=== PATIENT | female | born 2000 | race Caucasian/White ===

== ENCOUNTER → 2021-04-10 15:32 | Outpatient (CLI) | payer MEDICAID, SELFPAY ==
[2021-04-10 17:30] LABS: Absolute Lymphocyte Count 2.82 X10^3/uL (0.83-4.51); Absolute Neutrophil Count 7.6 X10^3/uL (2.0-7.7); Basophil# 0.03 X10^3/uL; Basophil% 0.3 % (0-1); Eosinophils% 0.9 % (0-5); Hematocrit 36.1 % (37-47); Hemoglobin 12.2 g/dL (12.0-15.0); Lymphocyte # 2.82 X10^3/ul (0.83-4.51); Lymphocyte % 25.1 % (19-41); Mean Corp Hgb Conc 33.8 g/dL (32-36); Mean Corpuscular Hgb 30.4 pg (27.0-32.0); Mean Platelet Vol. 11.5 fl (6.2-12.0); Monocyte# 0.68 X10^3/uL; NRBC Flagged by Analyzer 0 % (0-5); Neutrophil # 7.59 X10^3/uL (2.7-7.7); Neutrophil % 67.4 % (47-70); Platelet Count 261 K/mm3 (150-450); RBC Distribution Width CV 12.4 % (11.6-14.6); Red Blood Count 4.01 M/mm3 (4.2-5.4); White Blood Count 11.3 K/mm3 (4.4-11.0)
[2021-04-11 09:08] LABS: HIV - WCH Non-Reactive (Nonreactive); Hepatitis B Surface Antigen Non-Reactive (Nonreactive); Hepatitis C Antibody Non-Reactive (Nonreactive); Rubella IgG Reactive (Nonreactive); Syphilis Antibodies Non-reactive
[2021-04-13 06:07] LABS: Chlamydia By Nucleic Acid AMP Negative (Negative)
[2021-04-13 08:44] LABS: Gonococcus By Nucleic Acid AMP Negative (Negative)
[2021-04-13 12:17] LABS: HPV Reflexed? NOT INDICATED
== END ==
PROVIDERS: Visit Provider Obstetrics & Gynecology
DX: Z34.81 Encounter for supervision of other normal pregnancy, first trimester (principal)
CPT/HCPCS: 36415; 85025; 86703; 86762; 86780; 86803; 87077; 87086; 87088; 87340; 87491; 87591; 88175; G0145

== ENCOUNTER → 2021-08-21 16:35 | Outpatient (CLI) | payer MEDICAID, SELFPAY ==
[2021-08-21 17:30] LABS: Hematocrit 35.7 % (37-47); Hemoglobin 11.7 g/dL (12.0-15.0); Mean Corp Hgb Conc 32.8 g/dL (32-36); Mean Corpuscular Hgb 32.1 pg (27.0-32.0); Mean Corpuscular Volume 97.8 fL (81-99); Mean Platelet Vol. 10.4 fl (6.2-12.0); Platelet Count 228 K/mm3 (150-450); RBC Distribution Width SD 46.8 fl (35.1-43.9); Red Blood Count 3.65 M/mm3 (4.2-5.4); White Blood Count 12.1 K/mm3 (4.4-11.0)
[2021-08-21 17:37] LABS: Glucose Challenge Gest 1H 50g 80 mg/dL (70-140)
== END ==
PROVIDERS: Visit Provider Obstetrics & Gynecology
DX: Z34.82 Encounter for supervision of other normal pregnancy, second trimester (principal)
CPT/HCPCS: 36415; 82950; 85027

== ENCOUNTER 2021-11-09 17:20 | Outpatient (CLI) | payer MEDICAID, SELFPAY | END 2021-11-09 23:59 | disposition short-term general hospital (02) | LOC: WOBLAB 17:20 | PROVIDERS: Visit Provider Obstetrics & Gynecology | DX: Z36.85 Encounter for antenatal screening for Streptococcus B (principal) | CPT/HCPCS: 87081 ==

== ENCOUNTER 2021-12-03 11:10 | Outpatient (CLI) | payer MEDICAID, SELFPAY ==
[2021-12-03 11:14] VITALS: BMI 35.0
[2021-12-03 11:15] VITALS: TEMP 36.8; O2SAT 98
[2021-12-03 11:48] LABS: ROM Internal Control Test YES-OK TO RESULT pt. (Internal QC); ROM Patient Test Negative (Negative)
--- NOTE | 2021-12-03 21:37 | PCM.PN.BLA ---
Progress Note G1 at 39/6w presenting with leaking of fluid. ROM negative. CE 4 cm, unchanged after recheck. status reassuring. NST REACTIVE. FHR 145/mod tanya/+accel/no decel, irregular contractions. Discharge home with labor precautions
== END 2021-12-03 23:59 | disposition home or self-care (01) ==
LOC: WPOUT 11:13 → WP 11:14
PROVIDERS: Visit Provider Student in an Organized Health Care Education/Training Program
DX: O47.1 False labor at or after 37 completed weeks of gestation (principal); Z3A.39 39 weeks gestation of pregnancy
CPT/HCPCS: 59050; G0378 ×2; 84112; 59025; 99218

== ENCOUNTER 2021-12-05 12:12 | Inpatient (IN) | payer MEDICAID, SELFPAY ==
[2021-12-05] VITALS (43 sets, daily range): BP systolic 107–134; BP diastolic 55–90; PULSE 71–98; TEMP 36.1–37.1; O2SAT 97–100; BMI 34.0
[2021-12-05] MEDS: Lactated Ringers 1,000 ML 50 ML IV (12:40)
[2021-12-05 12:56] LABS: Absolute Lymphocyte Count 2.04 X10^3/uL (0.83-4.51); Absolute Neutrophil Count 10.5 X10^3/uL (2.0-7.7); Basophil# 0.04 X10^3/uL; Basophil% 0.3 % (0-1); Eosinophil# 0.09 X10^3/uL; Eosinophils% 0.7 % (0-5); Hematocrit 35.2 % (37-47); Lymphocyte # 2.04 X10^3/ul (0.83-4.51); Mean Corp Hgb Conc 34.1 g/dL (32-36); Mean Platelet Vol. 11.1 fl (6.2-12.0); Monocyte# 0.86 X10^3/uL; Monocyte% 6.3 % (0-10); NRBC Flagged by Analyzer 0 % (0-5); Neutrophil # 10.46 X10^3/uL (2.7-7.7); Neutrophil % 76.9 % (47-70); Platelet Count 211 K/mm3 (150-450); RBC Distribution Width CV 14.1 % (11.6-14.6); Red Blood Count 3.87 M/mm3 (4.2-5.4); White Blood Count 13.6 K/mm3 (4.4-11.0)
[2021-12-05] MEDS: Lactated Ringers 500 ML 999 ML IV (15:21)
[2021-12-05] MEDS: fentaNYL-bupivacaine (epidural) 100 ML BAG EPIDURAL ×2 (16:17→21:00)
--- NOTE | 2021-12-05 18:31 | PCM.HP.OB ---
HPI - General General Date of Admission: 12/05/21 HPI Narrative HELIO MONROE, is a 21 F who presents with c/o painful contractions. Maternal Data Information SEAN Calculator Estimated Delivery Date Method Current WG Current Estimate 12/04/21 LMP (Certain) 40w 1d PFSH PFSH Medical History (Updated 12/05/21 @ 18:[address] Paola Field MD) Patient denies medical problems Home Medications Vitamin D (with calcium) 1 tab PO/SL DAILY 12/03/21 [History Last Taken 11/19/21 08:00] Allergy/AdvReac Type Severity Reaction Status Date / Time No Known Allergies Allergy Verified 12/05/21 12:30 Surgical History History of surgery Social History Smoking Status: Former smoker History 1 Elective abortions Hx Para 0 Spontaneous abortions Hx # Term Pregnancies Ectopic pregnancies Hx # Pregnancies Multiple births # of living children NST FHR Rate Baby A Baseline: 120 Variability:: Moderate Accelerations:: 15 x 15 Decelerations:: None NST Reactive:: Yes FHR Category:: Category I Uterine Activity:: 2-3/10 Vital Signs Vital Signs Vital Signs: 12/05/21 12:02 12/05/21 12:03 12/05/21 14:00 Temperature 98.1 F 98.4 F Temperature Source Tympanic Temporal Pulse Rate 83 80 81 Blood Pressure 134/88 H 123/71 H BP Systolic 134 123 BP Diastolic 88 71 Pulse Ox 99 100 12/05/21 15:37 12/05/21 15:48 12/05/21 15:49 Temperature 98.7 F Temperature Source Temporal Pulse Rate 82 87 Blood Pressure 124/90 H 124/81 H BP Systolic 124 124 BP Diastolic 90 81 Pulse Ox 99 12/05/21 15:53 12/05/21 15:58 12/05/21 15:59 Temperature Temperature Source Pulse Rate 80 85 Blood Pressure 128/83 H 130/85 H BP Systolic 128 130 BP Diastolic 83 85 Pulse Ox 100 100 12/05/21 16:03 12/05/21 16:08 12/05/21 16:10 Temperature Temperature Source Pulse Rate 89 73 77 Blood Pressure 128/80 H 127/64 H BP Systolic 128 127 BP Diastolic 80 64 Pulse Ox 99 100 12/05/21 16:14 12/05/21 16:19 12/05/21 16:24 Temperature Temperature Source Pulse Rate 79 83 83 Blood Pressure 120/56 L 124/66 H BP Systolic 120 124 BP Diastolic 56 66 Pulse Ox 97 99 100 12/05/21 16:29 12/05/21 16:30 12/05/21 16:33 Temperature 98.2 F Temperature Source Temporal Pulse Rate 78 92 Blood Pressure 120/60 122/59 H BP Systolic 120 122 BP Diastolic 60 59 Pulse Ox 100 12/05/21 16:34 12/05/21 16:38 12/05/21 16:39 Temperature Temperature Source Pulse Rate 85 78 79 Blood Pressure 119/60 BP Systolic 119 BP Diastolic 60 Pulse Ox 100 100 12/05/21 16:44 12/05/21 16:49 12/05/21 16:50 Temperature Temperature Source Pulse Rate 82 86 81 Blood Pressure 125/57 H 123/70 H BP Systolic 125 123 BP Diastolic 57 70 Pulse Ox 100 100 12/05/21 16:55 12/05/21 16:57 12/05/21 17:27 Temperature 98.2 F Temperature Source Temporal Pulse Rate 88 86 75 Blood Pressure 133/85 H 114/56 L 107/57 L BP Systolic 133 114 107 BP Diastolic 85 56 57 Pulse Ox 100 12/05/21 17:58 12/05/21 18:24 Temperature Temperature Source Pulse Rate 84 80 Blood Pressure 122/75 H 128/78 H BP Systolic 122 128 BP Diastolic 75 78 Pulse Ox Weight Weight: 98.43 kg Body Mass Index (BMI) 34.0 Physical Exam Const alert, oriented x3 and no apparent distress HEENT normocephalic Resp normal respiratory effort, normal air movement and clear to auscultation bilaterally Cardio regular rate and regular rhythm GI normal to inspection, nondistended, normoactive bowel sounds, soft to palpation, non-tender and non-distended Inspection: gravid Narrative: SVE /-2 Labs Labs Labs: Blood Type A POSITIVE Antibody Screen NEGATIVE Hct 35.2 % (37-47) L Hgb 12.0 g/dL (12.0-15.0) Syphilis Total Ab Non-reactive Rubella IgG Antibody Reactive (Nonreactive) Hep Bs Antigen Non-Reactive (Nonreactive) Neisseria gonorrhoeae DNA (DEBBIE) Negative (Negative) HIV 1&2 Antibody Non-Reactive (Nonreactive) Glucose 1 Hr 50 gm 80 mg/dL (70-140) Assessment & Plan (1) 40 weeks gestation of : PLAN: Active labor /- Amniotomy performed with IUPC, ISE placement Start pitocin for augmentation
[2021-12-05] MEDS: Acetaminophen 500 MG Tablet PO (18:38)
[2021-12-05] MEDS: Oxytocin 30 units/NS 500 ml 30 UNITS/500 ML IV.SOLN IV (19:03)
[2021-12-05] MEDS: Lactated Ringers 1,000 ML 200 ML IV (20:10)
[2021-12-05] MEDS: Oxytocin 30 units/NS 500 ml 30 UNITS/500 ML IV.SOLN 334 UNITS IV (22:51)
[2021-12-05] MEDS: Methylergonovine 0.2 MG/ML Ampul IM (22:53)
[2021-12-05] MEDS: Carboprost Tromethamine 250 MCG/ML Ampul IM (22:58)
--- NOTE | 2021-12-05 23:17 | NURSING ---
Pitocin paused to given TXA at this time.
--- NOTE | 2021-12-05 23:35 | NURSING ---
TXA complete and Pitocin restarted at 334u/hr per physician order at bedside.
[2021-12-06] VITALS (42 sets, daily range): BP systolic 114–130; BP diastolic 55–81; PULSE 72–113; RESP 16–18; TEMP 36.1–37.3; O2SAT 97–100
--- NOTE | 2021-12-06 00:16 | EX.PCM.OBRPT ---
Assessment & Plan (1) (spontaneous vaginal delivery): (2) hemorrhage: QUALIFIERS: hemorrhage type: third-stage Qualified Code(s): O72.0 - Third-stage hemorrhage Maternal Data Information SEAN Calculator Estimated Delivery Date Method Current WG Current Estimate 12/04/21 LMP (Certain) 40w 2d Vaginal Delivery Maternal Presentation Maternal Presentation: Active Labor Maternal Presentation: amniotomy and pitocin for augmentation Operative Information Date of Procedure: 12/05/21 Pre-Operative Diagnosis: 1. 40 1/7 weeks gestation Post-Operative Diagnosis: 1. 40 1/7 weeks gestation 2. hemorrhage Surgery / Procedure Performed: Spontaneous Vaginal Delivery Type of Anesthesia: Epidural Anesthesiologist: Katty Bernal Drain: Thomason to straight drain Estimated Blood Loss: 1100 ml Time of Delivery: 22:42 Findings Description of Procedure: Patient was FD/+4 station and pushed to deliver a male in OA. The was placed on the maternal abdomen and an arm cord was reduced. The infant was further attended by nursery personnel. The cord was doubly clamped and cut. Cord gases were obtained. The placenta delivered spontaneously and appeared intact on inspection. There was uterine atony with hemorrhage. Cervix was intact on inspection and intrauterine exam was performed. Bimanual uterine massage was employed. IV pitocin was administered and IM Methergine was given immediately. The uterus relaxed again following massage. Gauze curettage and Banjo curettage were done with retrieval of membranes and followed by Bedside US performed with thin endometrium and no color Doppler flow to the endometrium. Hemabate was given. A Bakri balloon was placed with improvement of bleeding. A second degree perineal laceration with left labial extension was repaired with 3-0 Vicryl Rapide, however, the Bakri balloon expulsed with increased uterine tone. The fundus was this time was firm and lower uterine segment contracted with resolution of hemorrhage. The perineal lac repair was bleeidng vaginally. Two figure of eight sutures were placed for additional hemostasis however the vagina bled with each needle puncture. Pressure was held for 2 minutes and the vaginal was packed with a single moistened surgical lap sponge for vaginal tamponade. Sponge and needle counts were correct x 2. Admission Hgb 12.0. CBC in am. Methergine series. Pt also received TXA. Presentation: Vertex Amniotic Fluid Description: Clear Placental Delivery Description: Spontaneous Placenta Disposition: [facility] Cord Vessel Description: 3 Vessels Cord Entanglement: - (arm cord) Nuchal Cord Compression: Without compression Cord Gases: ABG and VBG Infant A Gender: Male (1 minute): 8 (5 minute): 9 Delayed Cord Clamping: Yes Post Vaginal Delivery Medications Given After Delivery: IV Pitocin, IM Methergin, IM Hemabate and - (Tranexamic acid) Episiotomy Description: None Laceration: Left Mediolateral, Vaginal Extension/lac and 2nd degree Complication Complications: - ( hemorrhage)
[2021-12-06] MEDS: Ibuprofen 600 MG Tablet PO ×2 (04:20→18:50)
[2021-12-06 05:38] LABS: Hematocrit 29.6 % (37-47); Hemoglobin 10.2 g/dL (12.0-15.0); Mean Corp Hgb Conc 34.5 g/dL (32-36); Mean Corpuscular Hgb 31.5 pg (27.0-32.0); Mean Corpuscular Volume 91.4 fL (81-99); Mean Platelet Vol. 11.2 fl (6.2-12.0); Platelet Count 213 K/mm3 (150-450); RBC Distribution Width CV 14.1 % (11.6-14.6); RBC Distribution Width SD 46.6 fl (35.1-43.9); Red Blood Count 3.24 M/mm3 (4.2-5.4)
--- NOTE | 2021-12-06 07:19 | PCM.PN.OB ---
Subjective Subjective No issues overnight. Denies headache, vision changes, shortness of breath, chest pain, heart racing, fatigue. Denies heavy bleeding. Pain is controlled. Objective Data Objective Data Vital Signs: Vital Signs Temp Pulse Resp BP Pulse Ox 97.8 F 88 18 120/71 99 12/06/21 03:51 12/06/21 03:51 12/06/21 03:51 12/06/21 03:51 12/06/21 03:51 Oxygen Delivery Method Room Air Weight: 98.43 kg Body Mass Index (BMI) 34.0 Intake & Output: Intake and Output for Last 24 Hours 12/04/21 12/05/21 12/06/21 23:59 23:59 23:59 Intake Total 2969.27 / 2969.27 1388.87 / 1388.87 Output Total 500 / 500 1500 / 1500 Balance 2469.27 / 2469.27 -111.13 / -111.13 Lab / Micro Data Result Diagrams: 12/06/21 05:15 Labs: Laboratory Results - last 24 hr 12/05/21 12:40: WBC 13.6 H, RBC 3.87 L, Hgb 12.0, Hct 35.2 L, MCV 91.0, MCH 31.0, MCHC 34.1, RDW Std Deviation 46.0 H, RDW Coeff of Sanjeev 14.1, Plt Count 211, MPV 11.1, Immature Gran % (Auto) 0.800, Neut % (Auto) 76.9 H, Lymph % (Auto) 15.0 L, [place] % (Auto) 6.3, Eos % (Auto) 0.7, Baso % (Auto) 0.3, Absolute Neuts (auto) 10.5 H, Absolute Lymphs (auto) 2.04, Nucleated RBC % 0 12/05/21 12:40: Blood Type A POSITIVE, Antibody Screen NEGATIVE 12/05/21 12:40: Crossmatch See Detail 12/06/21 05:15: WBC 17.0 H, RBC 3.24 L, Hgb 10.2 L, Hct 29.6 L, MCV 91.4, MCH 31.5, MCHC 34.5, RDW Std Deviation 46.6 H, RDW Coeff of Sanjeev 14.1, Plt Count 213, MPV 11.2 Physical Exam Const alert, oriented x3 and no apparent distress Resp normal respiratory effort and normal air movement Cardio regular rate, regular rhythm, S1 normal heart sound and S2 normal heart sound External Female Exam: external swelling Uterus Palpation: uterus fundus firm and other OB fundus nontender Extremity no calf tenderness Neuro oriented x3 Assessment & Plan (1) (spontaneous vaginal delivery): PLAN: Routine care Rh positive (2) hemorrhage: QUALIFIERS: hemorrhage type: third-stage Qualified Code(s): O72.0 - Third-stage hemorrhage PLAN: Hgb 10.2 Pt asx however not yet ambulating Follow up symptoms
[2021-12-07] MEDS: Ibuprofen 600 MG Tablet PO (02:23)
[2021-12-07 02:25] VITALS: BP 128/74; PULSE 85; RESP 18; TEMP 37.2; O2SAT 97
--- NOTE | 2021-12-07 07:34 | PCM.DC ---
Discharge Instructions Diet Discharge Diet: No restrictions Activity Discharge Activity: Return to Normal Activity, May Drive and May Shower May resume sexual activity in: 4-6 weeks Weight Bearing Status: Weight bearing as tolerated Dressing / Incision Call your doctor if your incision/area has: Continuous Slow Oozing and Foul Smelling Discharge Call your doctor if you observe: Fever of 101 or Higher, Shortness of breath and Chest pain Follow Up Care Please Follow Up With: Cody Ayala MD When: 2-week telehealth visit, 4 to 6 weeks Test Results: Test results from this visit will be discussed in further detail at your follow-up appointment, if applicable. Discharge Plan Admission Admit Date/Time: 12/05/21 12:12 Attending Provider: Paola Palmer Discharge Orders/Prescriptions Prescriptions: No Action Vitamin D (with calcium) 1 tab PO/SL DAILY RF: 0 Disposition Discharge Orders: Discharge Patient (Routine); Ordered 12/07/21 Ordered By: Dr. Cody Ayala
--- NOTE | 2021-12-07 07:35 | PN.OBGYN_ITS ---
Subjective Subjective No overnight complaints. Pain well controlled. Objective Data Objective Data Vital Signs: Vital Signs Temp Pulse Resp BP Pulse Ox 98.9 F 85 18 128/74 H 97 12/07/21 02:25 12/07/21 02:25 12/07/21 02:25 12/07/21 02:25 12/07/21 02:25 Oxygen Delivery Method Room Air Weight: 217 lb Body Mass Index (BMI) 34.0 Intake & Output: Intake and Output for Last 24 Hours 12/05/21 12/06/21 12/07/21 23:59 23:59 23:59 Intake Total 2969.27 / 2969.27 1388.87 / 1388.87 Output Total 500 / 500 2400 / 2400 Balance 2469.27 / 2469.27 -1011.13 / -1011.13 Lab / Micro Data Result Diagrams: 12/06/21 05:15 Physical Exam Const alert, oriented x3, no apparent distress, average body habitus, healthy appearing and well nourished Exam Limitations: no limitations HEENT normocephalic Head and Scalp: atraumatic Face and Sinus: normal facial exam Eyes PERRL Neck full ROM Resp normal respiratory effort, no retractions and no use of accessory muscles GI GI Narrative: Soft, nontender, uterus firm and below umbilicus Extremity normal to inspection, full ROM and no clubbing, cyanosis or edema Psych mental status grossly normal, affect normal and speech normal Assessment & Plan (1) (spontaneous vaginal delivery): PLAN: day 2. Breast-feeding. Baby was tongue-tied to be evaluated by safety advisor. Home today
[2021-12-07 08:16] VITALS: BP 113/63; PULSE 78; RESP 16; TEMP 36.6; O2SAT 100
[2021-12-07 12:52] VITALS: BP 110/72; PULSE 93; RESP 16; TEMP 36.9; O2SAT 99
== END 2021-12-07 13:55 | disposition home or self-care (01) | DRG 542 ==
LOC: WPOUT 12:19 → WP 12:19
PROVIDERS: Admitting Provider Obstetrics & Gynecology; Visit Provider Obstetrics & Gynecology
DX: O48.0 Post-term pregnancy (principal); Z37.0 Single live birth; O72.0 Third-stage hemorrhage; O72.1 Other immediate postpartum hemorrhage; O70.1 Second degree perineal laceration during delivery; O69.2XX0 Labor and delivery complicated by other cord entanglement, with compression, not applicable or unspecified; Z3A.40 40 weeks gestation of pregnancy; Z87.891 Personal history of nicotine dependence
CPT/HCPCS: 59025; 59050; 76815; 84112; 85025; 85027; 86850; 86900; 86901; 86920; 99218; J7120; G0378

== ENCOUNTER → 2022-06-26 | Outpatient (CLI) | payer MEDICAID, SELFPAY ==
[2022-06-26 11:12] LABS: Absolute Lymphocyte Count 1.84 X10^3/uL (0.83-4.51); Absolute Neutrophil Count 5.4 X10^3/uL (2.0-7.7); Basophil# 0.03 X10^3/uL; Basophil% 0.4 % (0-1); Eosinophil# 0.03 X10^3/uL; Eosinophils% 0.4 % (0-5); Hematocrit 37.1 % (37-47); Hemoglobin 12.5 g/dL (12.0-15.0); Lymphocyte # 1.84 X10^3/ul (0.83-4.51); Lymphocyte % 23.9 % (19-41); Mean Corp Hgb Conc 33.7 g/dL (32-36); Mean Corpuscular Hgb 29.7 pg (27.0-32.0); Mean Corpuscular Volume 88.1 fL (81-99); Monocyte# 0.43 X10^3/uL; Monocyte% 5.6 % (0-10); NRBC Flagged by Analyzer 0 % (0-5); Neutrophil # 5.35 X10^3/uL (2.7-7.7); Neutrophil % 69.4 % (47-70); Platelet Count 295 K/mm3 (150-450); RBC Distribution Width CV 14.1 % (11.6-14.6); RBC Distribution Width SD 45.8 fl (35.1-43.9); Red Blood Count 4.21 M/mm3 (4.2-5.4); White Blood Count 7.7 K/mm3 (4.4-11.0)
[2022-06-26 14:07] LABS: HIV - WCH Non-Reactive (Nonreactive); Hepatitis B Surface Antigen Non-Reactive (Nonreactive); Hepatitis C Antibody Non-Reactive (Nonreactive); Rubella IgG Reactive (Nonreactive); Syphilis Antibodies Non-reactive
[2022-06-27 13:16] LABS: V-Zoster IgG (Immunity) 1713 index (Immune >165)
[2022-06-28 06:08] LABS: Chlamydia By Nucleic Acid AMP Negative (Negative)
[2022-06-28 09:22] LABS: Gonococcus By Nucleic Acid AMP Negative (Negative)
[2022-06-29 15:47] LABS: HPV Reflexed? NOT INDICATED
== END | disposition home or self-care (01) ==
LOC: WOBLAB 10:19
PROVIDERS: Visit Provider Obstetrics & Gynecology
DX: Z34.81 Encounter for supervision of other normal pregnancy, first trimester (principal)
CPT/HCPCS: 36415; 85025; 86703; 86762; 86780; 86787; 86803; 87086; 87088; 87340; 87491; 87591; 88175; G0145

== ENCOUNTER → 2022-08-20 | Outpatient (CLI) | payer MEDICAID, SELFPAY ==
[2022-08-20 15:25] LABS: Glucose Challenge Gest 1H 50g 96 mg/dL (70-140)
== END | disposition home or self-care (01) ==
LOC: LABSPEC 14:16
PROVIDERS: Visit Provider Obstetrics & Gynecology
DX: Z34.81 Encounter for supervision of other normal pregnancy, first trimester (principal)
CPT/HCPCS: 36415; 82950

== ENCOUNTER → 2022-09-06 | Outpatient (CLI) | payer MEDICAID, SELFPAY | END | disposition home or self-care (01) | LOC: LABSPEC 12:04 | PROVIDERS: Visit Provider Obstetrics & Gynecology | DX: Z34.81 Encounter for supervision of other normal pregnancy, first trimester (principal) | CPT/HCPCS: 87086; 87088 ==

== ENCOUNTER → 2022-12-11 | Outpatient (CLI) | payer MEDICAID, SELFPAY ==
[2022-12-11 14:12] LABS: Absolute Lymphocyte Count 2.22 X10^3/uL (0.83-4.51); Absolute Neutrophil Count 8.1 X10^3/uL (2.0-7.7); Basophil# 0.03 X10^3/uL; Basophil% 0.3 % (0-1); Eosinophil# 0.06 X10^3/uL; Eosinophils% 0.5 % (0-5); Hemoglobin 10.9 g/dL (12.0-15.0); Lymphocyte # 2.22 X10^3/ul (0.83-4.51); Mean Corpuscular Hgb 30.1 pg (27.0-32.0); Mean Corpuscular Volume 91.2 fL (81-99); Mean Platelet Vol. 10.4 fl (6.2-12.0); Monocyte# 0.63 X10^3/uL; Monocyte% 5.7 % (0-10); NRBC Flagged by Analyzer 0 % (0-5); Neutrophil # 8.07 X10^3/uL (2.7-7.7); Neutrophil % 72.9 % (47-70); Platelet Count 234 K/mm3 (150-450); RBC Distribution Width CV 13.2 % (11.6-14.6); RBC Distribution Width SD 43.8 fl (35.1-43.9); Red Blood Count 3.62 M/mm3 (4.2-5.4); White Blood Count 11.1 K/mm3 (4.4-11.0)
[2022-12-11 14:14] LABS: Glucose Challenge Gest 1H 50g 104 mg/dL (70-140)
== END | disposition home or self-care (01) ==
PROVIDERS: Visit Provider Obstetrics & Gynecology
DX: Z34.83 Encounter for supervision of other normal pregnancy, third trimester (principal)
CPT/HCPCS: 36415; 82950; 85025

== ENCOUNTER 2023-01-30 23:57 | Outpatient (CLI) | payer MEDICAID, SELFPAY ==
[2023-01-31 00:06] VITALS: BMI 32.0
[2023-01-31 00:15] VITALS: TEMP 37
[2023-01-31 00:18] VITALS: BP 126/71; PULSE 77
--- NOTE | 2023-01-31 05:05 | OB.TRI.NOTE ---
HPI - General General Date of Service: 01/30/23 HPI Narrative HELIO MONROE, is a 22 F who presents with contractions PFSH PFS Medical History (Updated 01/31/23 @ 05:[address] Cody Ayala MD) Patient denies medical problems Home Medications Vitamin D (with calcium) 1 tab PO/SL DAILY Check with primary doctor 12/03/21 [History Last Taken 11/19/21 08:00] Allergy/AdvReac Type Severity Reaction Status Date / Time No Known Allergies Allergy Verified 01/31/23 00:33 Surgical History History of surgery Social History Smoking Status: Former smoker History 1 Elective abortions Hx Para 0 Spontaneous abortions Hx # Term Pregnancies Ectopic pregnancies Hx # Pregnancies Multiple births # of living children 1 NST FHR Rate Baby A Baseline: 130 Variability:: Moderate Accelerations:: 15 x 15 Decelerations:: None NST Reactive:: Yes Uterine Activity:: Every 2 to 5 minutes Assessment & Plan (1) : PLAN: Called by nursing patient arrived with complaints of contractions. Cervical exam by nursing, reported by nursing states overall comfortable in bed no obvious signs of labor. Instructed to check in 2 to 3 hours and if cervical exam unchanged to [place] home. Per nursing report today patient's repeat cervical exam unchanged and patient discharged home with labor precautions
== END 2023-01-31 02:42 | disposition home or self-care (01) ==
LOC: WPOUT 01-31 00:03 → WP 01-31 00:03
PROVIDERS: Visit Provider Obstetrics & Gynecology
DX: O47.9 False labor, unspecified (principal); Z36.85 Encounter for antenatal screening for Streptococcus B; Z3A.00 Weeks of gestation of pregnancy not specified; Z87.891 Personal history of nicotine dependence
CPT/HCPCS: 36415; 59025; 59050; 85025; 86780; 87081; 99221; G0378

== ENCOUNTER → 2023-01-30 | Outpatient (CLI) | payer MEDICAID, SELFPAY ==
[2023-01-30 14:31] LABS: Absolute Lymphocyte Count 2.26 X10^3/uL (0.83-4.51); Basophil# 0.03 X10^3/uL; Basophil% 0.3 % (0-1); Eosinophil# 0.06 X10^3/uL; Eosinophils% 0.6 % (0-5); Hematocrit 31.3 % (37-47); Hemoglobin 9.9 g/dL (12.0-15.0); Lymphocyte # 2.26 X10^3/ul (0.83-4.51); Lymphocyte % 22.4 % (19-41); Mean Corp Hgb Conc 31.6 g/dL (32-36); Mean Corpuscular Hgb 28.3 pg (27.0-32.0); Mean Corpuscular Volume 89.4 fL (81-99); Mean Platelet Vol. 10.6 fl (6.2-12.0); Monocyte# 0.68 X10^3/uL; Monocyte% 6.7 % (0-10); NRBC Flagged by Analyzer 0 % (0-5); Neutrophil % 69.2 % (47-70); Platelet Count 230 K/mm3 (150-450); RBC Distribution Width SD 44.9 fl (35.1-43.9); White Blood Count 10.1 K/mm3 (4.4-11.0)
[2023-01-30 15:34] LABS: Syphilis Antibodies Non-reactive
== END | disposition home or self-care (01) ==
PROVIDERS: Visit Provider Obstetrics & Gynecology
DX: Z34.83 Encounter for supervision of other normal pregnancy, third trimester (principal); Z36.85 Encounter for antenatal screening for Streptococcus B
CPT/HCPCS: 87081; 86780; 36415; 85025

== ENCOUNTER 2023-02-11 00:40 | Inpatient (IN) | payer MEDICAID, SELFPAY ==
[2023-02-10 23:00] VITALS: PULSE 84; O2SAT 98
[2023-02-10 23:03] VITALS: BP 128/69; PULSE 86
[2023-02-10 23:09] VITALS: BMI 31.8
[2023-02-10 23:40] LABS: ROM Internal Control Test YES-OK TO RESULT pt. (Internal QC); ROM Patient Test Negative (Negative)
[2023-02-11] VITALS (42 sets, daily range): BP systolic 106–144; BP diastolic 56–93; PULSE 67–85; RESP 16–18; TEMP 36.1–36.8; O2SAT 76–100
[2023-02-11] MEDS: Lactated Ringers 1,000 ML 200 ML IV (00:45)
[2023-02-11 01:00] LABS: Absolute Neutrophil Count 9.6 X10^3/uL (2.0-7.7); Basophil# 0.03 X10^3/uL; Basophil% 0.2 % (0-1); Eosinophil# 0.04 X10^3/uL; Eosinophils% 0.3 % (0-5); Hematocrit 34.6 % (37-47); Lymphocyte % 20.4 % (19-41); Mean Corp Hgb Conc 31.8 g/dL (32-36); Mean Corpuscular Hgb 28.4 pg (27.0-32.0); Mean Corpuscular Volume 89.4 fL (81-99); Mean Platelet Vol. 10.7 fl (6.2-12.0); Monocyte# 0.72 X10^3/uL; Monocyte% 5.4 % (0-10); NRBC Flagged by Analyzer 0 % (0-5); Neutrophil # 9.62 X10^3/uL (2.7-7.7); Neutrophil % 72.9 % (47-70); Platelet Count 239 K/mm3 (150-450); RBC Distribution Width CV 14.6 % (11.6-14.6); RBC Distribution Width SD 46.9 fl (35.1-43.9); Red Blood Count 3.87 M/mm3 (4.2-5.4); White Blood Count 13.2 K/mm3 (4.4-11.0)
[2023-02-11] MEDS: fentaNYL-bupivacaine (epidural) 100 ML BAG EPIDURAL (01:35)
[2023-02-11] MEDS: Oxytocin 15 Units/NS 250ml 15 UNITS/250 ML IV.SOLN 334 UNITS IV (01:55)
[2023-02-11] MEDS: Methylergonovine 0.2 MG/ML Ampul IM (01:57)
--- NOTE | 2023-02-11 02:01 | PCM.HP.BLA ---
History and Physical Date of Admission: 02/11/23 HPI: 22-year-old G2, P1 at 38/5 weeks, SEAN 02/20/2023 by first trimester ultrasound, admitted for labor. Patient reports regular contractions. Denies leaking of fluid or vaginal bleeding. Reports movement. Denies headache or vision changes, chest pain or shortness of breath, nausea or vomiting, fevers or chills, diarrhea constipation. complicated by: Shorten interval , arrhythmia status post MFM consult noting normal echo and no arrhythmia noted. 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 Tonsillectomy and adenoidectomy Family history: Denies Social history: Denies alcohol or drug use. Reports former tobacco use. Allergies: No known drug allergies Medications: Iron Review of system: Negative otherwise stated above Physical exam: Blood pressure 123/71, heart rate 80,Temp 97.9 ?F, pulse ox 99% on room air General: No acute distress HEENT: Normal cephalic/atraumatic attic, PERRLA Cardiorespiratory: No increased effort Abdomen: Soft, nontender, gravid Extremities: No edema Neurologic: Cranial nerves II through XII grossly intact, no focal deficits Musculoskeletal: Strength 5 out of 5 throughout extremities heart rate:140/mod tanya/+accel/no decel [place]: q3 min Assessment/plan: 22-year-old G2, P1 at 38/5 weeks, SEAN 02/20/2023 by first trimester ultrasound, admitted for labor. complicated by: Shorten interval , arrhythmia status post MFM consult noting normal echo and no arrhythmia noted. ?Admit for labor, routine orders. Expectant management at this time. ? GBS negative
--- NOTE | 2023-02-11 02:10 | EX.PCM.OBRPT ---
Maternal Data Information Final SEAN: 02/20/23 Final SEAN Source: US <20 weeks Vaginal Delivery Operative Information Date of Procedure: 02/11/23 Pre-Operative Diagnosis: Torres intrauterine Post-Operative Diagnosis: Torres intrauterine Type of Anesthesia: Epidural Estimated Blood Loss: 250cc Findings Description of Procedure: Precipitous spontaneous vaginal delivery of viable . Loose nuchal cordx1 delivered through. Cord clamped and cut. Baby to mom. Spontaneous delivery of placenta. No lacerations. IM Methergine x1 was given prophylactically due to history of hemorrhage. Infant A Gender: Female (1 minute): 9 (5 minute): 9 Complication Complications: None
[2023-02-11] MEDS: Oxytocin 15 Units/NS 250ml 15 UNITS/250 ML IV.SOLN 83 UNITS IV (02:30)
[2023-02-11 02:35] LABS: Syphilis Antibodies Non-reactive
[2023-02-12 04:00] VITALS: BP 106/54; PULSE 68; RESP 14; TEMP 36.3
[2023-02-12 08:04] VITALS: BP 116/55; PULSE 70; RESP 18; TEMP 36.2; O2SAT 100
--- NOTE | 2023-02-12 08:12 | PCM.PN.OB ---
Subjective Subjective Feeling well. Lochia minimal. Formula feeding. Objective Data Objective Data Vital Signs: Vital Signs Temp Pulse Resp BP Pulse Ox O2 Del Method 97.1 F L 70 18 116/55 L 100 Room Air 02/12/23 08:04 02/12/23 08:04 02/12/23 08:04 02/12/23 08:04 02/12/23 08:04 02/12/23 08:04 Oxygen Delivery Method Room Air Weight: 92.442 kg Body Mass Index (BMI) 31.8 Intake & Output: Intake and Output for Last 24 Hours 02/10/23 02/11/23 02/12/23 23:59 23:59 23:59 Intake Total 631.50 / 631.50 Output Total 1750 / 1750 Balance -1118.50 / -1118.50 Lab / Micro Data Attestation: I reviewed the patient's lab results. Result Diagrams: 02/11/23 00:45 Physical Exam Const alert, oriented x3 and no apparent distress HEENT normocephalic Head and Scalp: atraumatic Neck full ROM Resp normal respiratory effort Cardio regular rate GI normal to inspection, nondistended, normoactive bowel sounds GI Narrative: Uterus 2 cm below umbilicus Back/Spine normal ROM Extremity normal to inspection Extremity Narrative: Minimal pedal edema Neuro no focal motor deficits and no sensory deficits noted Psych mental status grossly normal and affect normal Assessment & Plan (1) (spontaneous vaginal delivery): PLAN: day 1 status post . Feeling well. Formula feeding. Discharge home today.
--- NOTE | 2023-02-12 08:13 | DCINST_ITS ---
Discharge Instructions Diet Discharge Diet: No restrictions Activity Discharge Activity: Return to Normal Activity and May Shower May resume sexual activity in: 4-6 weeks Weight Bearing Status: Weight bearing as tolerated Lifting Restrictions: No greater than 25 pounds Dressing / Incision Call your doctor if you observe: Fever of 101 or Higher, Change in Color, Inability to urinate, Using more than 1 pad per hour, Shortness of breath, Dizziness, Swelling in the ankles, Chest pain and Calf discomfort Follow Up Care Please Follow Up With: Cody Ayala MD When: 6-week visit Test Results: Test results from this visit will be discussed in further detail at your follow- up appointment, if applicable. Discharge Plan Admission Admit Date/Time: 02/11/23 00:40 Primary Reason for Your Visit: Vaginal delivery Attending Provider: Alison Ayala Discharge Orders/Prescriptions Prescriptions: No Action ferrous sulfate [iron] 325 mg (65 mg iron) Tablet PO QODAY Disposition Disposition (needs filled in before D/C Order can be placed): Home, Self Care
[2023-02-12 13:23] VITALS: BP 112/69; PULSE 93; RESP 18; TEMP 36.4; O2SAT 98
--- NOTE | 2023-02-12 16:11 | CASEMGMT ---
Social Work Assessment Labor and Delivery Unit Patient Address: [address] [place] [address] [address], [place] [address] Phone number: [phone] Date of Referral: 02/12/2023 Time of Referral: 630 Referred By: Dr. Alison Ayala Date of Intervention: 02/12/2023 Time of Intervention: Approximately [id number] Reason for Referral: Resources History obtained from: Medical records and mother of baby (SKYE) Denise Calles Household composition: MOB reports to live with her parents and reports home situation is safe and adequate. Also in the home is MOB's older son. will also reside in his home. Patient's parent/guardian status: SKYE is a 22-year-old single female. Father of baby is between 2 men: Cheko Velasquez and another man named Frank who was a longtime friend of SKYE. MOB reports she and Cheko were together for 8 years and eventually grew apart. MOB described the relationship being somewhat emotionally toxic. SKYE now has 2 children: Westley Velasquez (2.1.22) and baby girl Michael Calles (4.10.23). SKYE reports to be an 8-month relationship with Ramirez Howardsonam. Ramirez has a 10-year-old and 11-year-old from a prior relationship. MOB denies any type of abuse or intimate partner violence with Ramirez. Medical History: SKYE is 2, para 1 now 2 after delivering Michael. care reported to be adequate. Michael delivered weighing 7 pounds 9 ounces. Apgars 9 and 9. Educational Status: SKYE graduated from trade school. Financial Status: Currently works at [employer] in [place]. SKYE reports additional financial support from her parents. Reports to receive child support for Westley. Infant Supplies: MOB reports to have all necessary supplies including safe sleep space, car seat, clothing, diapers, wipes, bottles and formula. Childcare/Caregiver(s): MOB will be the primary caregiver and then when SKYE returns to work MOB's mother will provide babysitting. Transportation: MOB denies any transportation concerns. Programs/Agencies Involved: Medicaid through job and family services. Active with [place]. Denies any other agency involvement. Children Services/Legal Issues: None reported. Behavioral Health Issues: Mental Health History: MOB denies any mental health history. Denies any history of mood and anxiety disorders. Substance Use History: Denies any history. No alcohol during . No tobacco use. Family History: Not discussed. Drug Screens: No drug screens noted in mom or baby chart. Family/Social Stressors: Break-up of an 8-year relationship prior to/around time of conception. Closely spaced pregnancies in this being unplanned. MOB does report however intent and desire to parent . MOB reports this was a little bit more difficult as MOB for his working full-time and taking care of an /toddler and having an unplanned . During most of the MOB's parents lived in [place] but they recently moved back in order to help the MOB. Support Systems: MOB reports good support from her parents. MOB's mother is primary emotional support. MOB's boyfriend Ramirez is reported as a support. Depression/Shaken Baby/Safe Sleeping: Information provided on mood and anxiety disorders, shaken baby prevention and safe sleeping. MOB reports she is against cosleeping and to take safe sleeping seriously. ASSESSMENT: Met with MOB in room, introducing to self and social work role. SKYE's boyfriend Ramirez was in the room for part of the assessment in the left at this financial underwriter's request for one-on-one conversation. MOB held good eye contact, was talkative, attentive to the baby and handled the baby appropriately. Noted that the was fussy and MOB and the baby part of the bottle. MOB reports to have necessary supplies to care for the , stable housing and no issues with meeting basic needs. MOB does plan to return to work after 6 weeks in order to keep up with finances, but reports her parents are willing to help her. MOB excepted information on mood and anxiety disorders. Reviewed risk factors and importance of seeking out help and support should issues arise. [place] depression screen was completed this date with a score of 2 well below the threshold of any presence of depression or anxiety. Provided MOB with packet on mood and anxiety disorders and a packet of resources for [facility]. PLAN: MOB and infant will discharge home when ready. Resources provided for home-going. No other services requested or indicated. -GALINDO Watts, QUIANA *This note was generated with [employer] software. It may contain incorrect words, spelling, and punctuation that were not noted in review of the chart prior to signing*
== END 2023-02-12 14:52 | disposition home or self-care (01) | DRG 560 ==
LOC: WPOUT 00:41 → WP 00:41
PROVIDERS: Admitting Provider Student in an Organized Health Care Education/Training Program; Referring Provider Student in an Organized Health Care Education/Training Program; Visit Provider Student in an Organized Health Care Education/Training Program
DX: O69.81X0 Labor and delivery complicated by cord around neck, without compression, not applicable or unspecified (principal); Z37.0 Single live birth; O62.3 Precipitate labor; Z3A.38 38 weeks gestation of pregnancy
CPT/HCPCS: 59025; 59050; 84112; 85025; 86780; 86850; 86900; 86901; 99221; J7120; G0378

== ENCOUNTER 2024-10-23 20:36 | Emergency (ER) | payer OTHER, SELFPAY ==
[2024-10-23 20:37] VITALS: BP 126/80; PULSE 82; RESP 16; TEMP 36.2; O2SAT 100; BMI 21.7
--- NOTE | 2024-10-23 21:40 | CT_ITS ---
EXAM: CT ABDOMEN AND PELVIS WITH INTRAVENOUS CONTRAST CLINICAL INDICATION: LLQ pelvic pain / enlarge L inguinal lymph node TECHNIQUE: Helically acquired images were obtained of the abdomen and pelvis with intravenous contrast. This CT exam was performed using one or more of the following dose reduction techniques: automated exposure control, adjustment of the mA and/or kV according to patient size, and/or use of iterative reconstruction technique. CONTRAST: IV 100mL [id number] COMPARISON: No relevant prior studies available. FINDINGS: LOWER THORAX: Unremarkable. Lung bases are clear. No cardiomegaly. No significant pericardial effusion. ABDOMEN: LIVER: Unremarkable. Homogeneous. No focal mass. GALLBLADDER AND BILE DUCTS: Unremarkable. No calcified gallstones. No gallbladder distention or wall edema. No intra- or extrahepatic biliary ductal dilation. PANCREAS: Unremarkable. No focal cystic or solid mass. SPLEEN: Unremarkable. Normal size without focal cystic or solid mass. ADRENALS: Unremarkable. No nodules. KIDNEYS AND URETERS: Unremarkable. Normal renal size and position. No hydronephrosis. STOMACH AND BOWEL: Unremarkable. No stomach or bowel distention. No focal inflammatory change. PELVIS: APPENDIX: No evidence of acute appendicitis. BLADDER: Unremarkable. REPRODUCTIVE: Unremarkable as visualized. No mass. ABDOMEN and PELVIS: INTRAPERITONEAL SPACE: Unremarkable. No ascites or other fluid collection. No free air. BONES/JOINTS: Unremarkable. No suspicious lytic or blastic abnormality. SOFT TISSUES: Unremarkable. No discrete abdominal or pelvic wall hernia. VASCULATURE: Unremarkable. Abdominal aorta is non-dilated. LYMPH NODES: Unremarkable. No enlarged lymph nodes. TUBES, LINES AND DEVICES: There is an intrauterine device in place. CT/Abdomen/Pelvis W IV Cont ONLY IMPRESSION: No acute findings in the abdomen or pelvis. Electronically Signed: José Shaw MD at 22:46 EST ,
[2024-10-23 22:03] LABS: Absolute Lymphocyte Count 3.03 X10^3/uL (0.83-4.51); Absolute Neutrophil Count 4.6 X10^3/uL (2.0-7.7); Basophil# 0.03 X10^3/uL; Basophil% 0.4 % (0-1); Eosinophil# 0.17 X10^3/uL; Hematocrit 38.4 % (37-47); Hemoglobin 12.9 g/dL (12.0-15.0); Lymphocyte # 3.03 X10^3/ul (0.83-4.51); Lymphocyte % 36.2 % (19-41); Mean Corp Hgb Conc 33.6 g/dL (32-36); Mean Corpuscular Hgb 30.8 pg (27.0-32.0); Mean Corpuscular Volume 91.6 fL (81-99); Mean Platelet Vol. 10.2 fl (6.2-12.0); Monocyte# 0.51 X10^3/uL; Monocyte% 6.1 % (0-10); NRBC Flagged by Analyzer 0 % (0-5); Neutrophil % 54.9 % (47-70); Platelet Count 281 K/mm3 (150-450); RBC Distribution Width CV 12.9 % (11.6-14.6); RBC Distribution Width SD 42.5 fl (35.1-43.9); Red Blood Count 4.19 M/mm3 (4.2-5.4); White Blood Count 8.4 K/mm3 (4.4-11.0)
[2024-10-23 22:29] LABS: Anion Gap 2 (5-15); BUN 11 mg/dL (7-18); BUN/Creat Ratio 12.9 RATIO (10-20); Calcium,Total 9.1 mg/dL (8.5-10.1); Chloride 110 mmol/L (98-107); Creatinine, Serum 0.85 mg/dL (0.55-1.02); EST Glomerular Filtration Rate 86 mL/min (>60); Est Glom Filt Rate - Afr Amer 104 mL/min (>60); Estimated Creatinine Clearance 97.53 ml/min; Glucose 87 mg/dL (74-106); Potassium 3.7 mmol/L (3.5-5.1); Sodium Level 144 mmol/L (136-145)
[2024-10-23 22:37] VITALS: PULSE 75; RESP 16; O2SAT 97
[2024-10-23 23:06] VITALS: BP 126/80; PULSE 75; RESP 16; TEMP 36.2; O2SAT 97
[2024-10-23] MEDS: Cephalexin 250 MG Capsule 500 MG PO (23:11)
--- NOTE | 2024-10-24 00:20 | EDS_ITS ---
HPI History of Present Illness Chief Complaint: Other, Pain/Inj Informant: patient Narrative Narrative: 24-year-old female has felt a swollen tender area in the left suprapubic region over the past couple days. She states it has not gotten red or seemed like a pu stule. She notes some paresthesias of the left thigh when she sits forward. She notes some discomfort in the left thigh because of the swelling. She notes about 100 pound weight loss over the past year. She denies any lymphadenopathy that she has felt anywhere else. No vomiting diarrhea. No URI symptoms. No vaginal lesions or sores. No vaginal discharge. She has an IUD in place. [facility] Medical History Patient denies medical problems Home Medications ?Medication ?Instructions ?Recorded ?Last Taken ?Type cephalexin 500 mg capsule 500 mg PO Q6 #28 CAPSULES 10/23/24 Unknown Rx Allergy/AdvReac Type Severity Reaction Status Date / Time No Known Allergies Allergy Verified 10/23/24 20:37 Surgical History History of surgery Social History Smoking Status: Never smoker ROS ROS ED Constitutional Constitutional ED: Reports weight loss; Denies chills or fever(s) Eyes Eyes: Denies change in vision or diplopia ENT ENT ED: Denies ear pain, rhinorrhea or sore throat Cardiovascular Cardiovascular: Denies chest pain, orthopnea, palpitations or racing heartbeat Respiratory/Chest Respiratory/Chest: Denies cough, dyspnea or orthopnea Gastrointestinal Gastrointestinal: Denies abdominal pain, diarrhea, nausea or vomiting Genitourinary Genitourinary ED: Denies dysuria, hematuria or urinary frequency Musculoskeletal Musculoskeletal: Denies arthralgias or myalgias Integumentary Denies abscess or rash Neurologic Neurologic: Denies headache(s) or weakness Psychiatric Psychiatric: Denies anxiety, depression, suicidal ideation or suicidal thoughts Endocrine Endocrinology: Denies polydipsia, polyphagia or polyuria Hematologic/Lymphatic Hematologic/Lymphatic: Reports lymphadenopathy Allergic/Immunologic Allergic/Immunologic ED: Denies mouth swelling, tongue swelling or urticaria EXAM Physical Exam Const Vital Signs: 10/23/24 20:37 12/20/24 22:37 10/23/24 23:06 Temperature 97.2 F L 97.2 F L Temperature Source Temporal Pulse Rate 82 75 75 Respiratory Rate 16 16 16 Blood Pressure 126/80 H 126/80 H Blood Pressure Mean 95 95 Pulse Ox 100 97 97 Oxygen Delivery Method Room Air Room Air Positive well nourished and well developed General Appearance ED: well developed and NAD HEENT Reports normocephalic, head/scalp atraumatic and moist mucous membranes Eyes PERRL and EOMs intact bilaterally Neck no lymphadenopathy, supple and no JVD Resp normal respiratory effort and clear to auscultation bilaterally Cardio regular rate, regular rhythm and no murmurs GI normal to inspection, nondistended, normoactive bowel sounds and non-tender GI Narrative: Left suprapubic inguinal/pubic area demonstrates a tender swollen apparent lymph node that is mobile. I do not appreciate any obvious erythema or pustules in this area. I do not palpate any other significant areas of lymphadenopathy in the cervical or axillary region Palpation: soft Back/Spine no CVA tenderness and normal ROM Extremity normal to inspection General Extremety ED: Negative for edema General Extremity: Negative for edema Neuro oriented x3 and CN's II-XII intact bilaterally Sensorium / Orientation: alert Motor Exam: strength 5/5 throughout Psych mental status grossly normal Mood & Affect: Negative for depressed or tearful Skin no rashes or lesions noted and no wounds MDM MDM MDM Narrative Medical decision making narrative: Differential diagnosis includes but not limited to abscess swollen lymph node lymphoma blood dyscrasias We patient's white count 8.4 with a normal differential BMP within normal limits. CT of the pelvis my review demonstrates a swollen lymph node near the neurovascular bundle on the left. Most likely explains her paresthesias when she compresses the area. Unguinal recommend heat and we can place her on some antibiotics. The symptoms are not resolving and I am going to refer her to general surgery for further evaluation. She is comfortable with this plan History & Record Review Discussion w/independent historian: Patient Lab Data Attestation: I reviewed the patient's lab results. Labs: Laboratory Results - last 24 hr 10/23/24 21:56 WBC 8.4 RBC 4.19 L Hgb 12.9 Hct 38.4 MCV 91.6 MCH 30.8 MCHC 33.6 RDW Std Deviation 42.5 RDW Coeff of Sanjeev 12.9 Plt Count 281 MPV 10.2 Immature Gran % (Auto) 0.400 Neut % (Auto) 54.9 Lymph % (Auto) 36.2 Karnes % (Auto) 6.1 Eos % (Auto) 2.0 Baso % (Auto) 0.4 Absolute Neuts (auto) 4.6 Absolute Lymphs (auto) 3.03 Nucleated RBC % 0 Sodium 144 Potassium 3.7 Chloride 110 H Carbon Dioxide 32.0 Anion Gap 2 L BUN 11 Creatinine 0.85 Estim Creat Clear Calc 97.53 Est GFR (MDRD) Af Amer 104 Est GFR (MDRD) Non-Af 86 BUN/Creatinine Ratio 12.9 Glucose 87 Calcium 9.1 Radiography Diagnostic Testing: Clinical Impression(s) from Imaging Studies Abdomen/Pelvis CT 10/23/24 21:40 IMPRESSION: No acute findings in the abdomen or pelvis. Electronically Signed: José Shaw MD at 22:46 EST , Discharge Plan Triage Chief Complaint: Other, Pain/Inj ED Provider: Anderson Sepulveda Dx/Rx/DC Orders Clinical Impression: Enlargement of lymph node, Paresthesia Instructions: Lymphadenopathy Prescriptions: New cephalexin 500 mg capsule 500 mg PO Q6 Qty: 28 0RF Primary Care Provider: Care Physician,No Primary Referrals: Jas Nunn MD [Med Staff - Active Staff] - 10-14 Days if not better Care Physician,No Primary [Primary Care Provider] - Print Language: Hungarian Disposition Disposition: Home, Self Care Discharge Date/Time: 10/23/24 23:17
== END 2024-10-23 23:17 | disposition home or self-care (01) ==
PROVIDERS: Emergency Provider Emergency Medicine; Visit Provider Emergency Medicine
DX: R59.9 Enlarged lymph nodes, unspecified (principal); R20.2 Paresthesia of skin; Z97.5 Presence of (intrauterine) contraceptive device
CPT/HCPCS: 74177; 80048; 85025; 99283; Q9967; A4216